=== PATIENT | male | born 1985 | race Caucasian/White ===

== ENCOUNTER 2022-05-03 21:06 | Emergency (ER) | payer OTHER, SELFPAY ==
[2022-05-03 21:07] VITALS: BP 115/93; PULSE 64; RESP 18; TEMP 36.4; O2SAT 97; BMI 25.2
--- NOTE | 2022-05-03 21:27 | EX.ED.UPPERE ---
HPI History of Present Illness Chief Complaint: Upper Extremity Injury Narrative Narrative: Patient fell off 4 steps onto his left hand injuring his left wrist. No head injury. No loss of consciousness. No neck pain. He has no elbow pain or shoulder pain. He has no chest pain abdominal pain or back pain. No lower extremity injury. [facility] Medical History Acute bronchitis, unspecified Acute otitis media, left Home Medications amoxicillin 875 mg-potassium clavulanate 125 mg tablet 1 tab PO BID #20 tabs 03/01/22 [Rx Last Taken Unknown] oxycodone-acetaminophen 5 mg-325 mg tablet (Endocet) 1 tab PO Q6H PRN pain 3 days #12 tabs 05/03/22 [Rx Last Taken Unknown] Allergy/AdvReac Type Severity Reaction Status Date / Time No Known Allergies Allergy Unverified 03/01/22 14:56 Social History Smoking Status: Never smoker ROS ROS ED ROS Narrative Social: Noncontributory Medications: Reviewed Past medical history: Reviewed Review of systems General: Patient has no head injury or loss of consciousness HEENT: No facial injury Neck: No neck pain Cardiovascular: Patient denies any chest pain or palpitations Chest wall: No chest wall contusions Respiratory: There is no shortness of breath GI: no abdominal pain or abdominal wall contusions Skin: No lacerations or abrasions Neurological: Patient has no memory loss, confusion, or any focal weakness Back: No back pain, no problems with ambulation Musculoskeletal: Left wrist injury as in HPI EXAM Physical Exam Narrative Exam Narrative: Physical exam Vitals reviewed General: Patient appears uncomfortable. HEENT: No facial injury Head: No head injury Eyes: Extraocular movements intact Neck: No C-spine tenderness with full range of motion Heart: Regular rate normal pulses Chest wall: No chest wall pain Lungs clear lungs bilaterally with normal inspiration and expiration without tachypnea GI: Abdomen is soft and nontender there is no mass no guarding no abdominal wall contusion : Stable pelvis Musculoskeletal: Deformity of the left wrist with dorsal angulation. Neurovascularly intact distally. Skin: No abrasions or laceration Neurological: Patient is alert and oriented with no focal deficits Const Vital Signs: 05/03/22 21:07 Temperature 97.6 F L Temperature Source Temporal Pulse Rate 64 Respiratory Rate 18 Blood Pressure 115/93 H Blood Pressure Mean 100 Pulse Ox 97 Oxygen Delivery Method Room Air MDM MDM MDM Narrative Medical decision making narrative: Patient is found to have a Colles' fracture which was reduced see procedure note. I discussed with orthopedics, Dr. Christensen who looked at the images and will see the patient in his office. Patient was given Dilaudid in the ED as well as Zofran. I will send him home with Percocets. Radiography Diagnostic Testing: Left wrist x-ray read by me shows a Colles' fracture which is intra-articular with dorsal angulation Left wrist x-ray postreduction shows a fracture with more anatomical alignment. Procedures Upper Extremity Splints Upper Extremity Splint: Orthoglass and - (AP splint) Splint Fabrication: Fabricated Location: Left Other Procedures Procedure(s): Reduction of Colles' fracture and hematoma block Verbal consent Hematoma block was then by me, I used a 1% lidocaine about 10 mL and achieved good analgesia. Patient was reduced by me without any difficulty. He was splinted, see separate procedure note Post reduction x-ray confirmed anatomic alignment. Discharge Plan Triage Chief Complaint: Upper Extremity Injury ED Provider: Mehul Milian Dx/Rx/DC Orders Clinical Impression: Colles' fracture, Fall Instructions: ED Colles Fracture, Reduction Required Prescriptions: New oxycodone-acetaminophen [Endocet] 5-325 mg tablet 1 tab PO Q6H PRN (Reason: pain) 3 Days Qty: 12 0RF No Action amoxicillin-pot clavulanate 875-125 mg tablet 1 tab PO BID Qty: 20 0RF Primary Care Provider: Jerrell Stringer Referrals: Arpit Christensen DO [Med Staff - Active Staff] - 3-5 Days Jerrell Stringer DO [Primary Care Provider] - 3-5 Days Disposition Disposition: Home, Self Care
[2022-05-03] MEDS: HYDROmorphone 1 MG/ML Syringe IV (21:29)
[2022-05-03] MEDS: Ondansetron 4 MG/2 ML Vial IV (21:33)
--- NOTE | 2022-05-03 21:35 | RAD_ITS ---
EXAM: XR LEFT WRIST, 2 VIEWS CLINICAL INDICATION: fall TECHNIQUE: Frontal and lateral views of the left wrist. This report was created using [employer] report generation technology. COMPARISON: None. FINDINGS: BONES/JOINTS: There is a comminuted fracture of the distal radius. The carpal bones are intact. Preservation of the joint space. No sclerotic or destructive changes observed. SOFT TISSUES: Unremarkable. No soft tissue swelling or gas. No radiopaque foreign body. OTHER FINDINGS: There is posterior angulation. RAD/Wrist 2 Views IMPRESSION: Comminuted fracture with posterior angulation of the distal radius. Electronically Signed: Neal Heller MD at 22:02 EST ,
[2022-05-03] MEDS: Lidocaine 1% (30 ml sdv) 30 ML Vial INFILT (21:51)
--- NOTE | 2022-05-03 22:00 | RAD_ITS ---
EXAM: XR LEFT WRIST, 2 VIEWS CLINICAL INDICATION: post reduction TECHNIQUE: Frontal and lateral views of the left wrist. This report was created using [employer] report generation technology. COMPARISON: 05/03/2022 at 2131 hours FINDINGS: BONES/JOINTS: Casting of a comminuted fracture the distal radius. Fracture fragments are in anatomic alignment. Preservation of the joint space. No sclerotic or destructive changes observed. SOFT TISSUES: Unremarkable. No soft tissue swelling or gas. No radiopaque foreign body. RAD/Wrist 2 Views IMPRESSION: Casting of a fracture of the distal radius. Alignment is anatomic. Electronically Signed: Neal Heller MD at 22:25 EST ,
== END 2022-05-03 22:45 | disposition home or self-care (01) ==
PROVIDERS: Emergency Provider Emergency Medicine; PCP Family Medicine; Visit Provider Emergency Medicine
DX: S52.532A Colles' fracture of left radius, initial encounter for closed fracture (principal); W10.9XXA Fall (on) (from) unspecified stairs and steps, initial encounter
CPT/HCPCS: 25605; 73100; 96374; 96375; 99283; A4216; J2405